=== PATIENT | female | born 1990 | race Caucasian/White ===

== ENCOUNTER 2018-03-21 02:16 | Inpatient (IN) ==
[2018-03-21] MEDS ORDERED: Gentamicin/NS 80 mg Premix 100 ML IV.SIG ONE (02:21)
[2018-03-21] MEDS ORDERED: Diphtheria/Tetanus/Pertussis Vaccine Inj 0.5 ML Syringe IM ONE (02:21)
[2018-03-21] MEDS ORDERED: fentaNYL Citrate Inj 100 MCG/2 ML Ampul ONE ×2 (02:21→08:11)
[2018-03-21 02:39] LABS: Baso # (Auto) 0.1 th/mm3 (0.0-0.2); Baso % (Auto) 0.5 % (0.0-2.0); Eos # (Auto) 0.1 th/mm3 (0.0-0.4); Eos % (Auto) 0.8 % (0.0-4.0); Hematocrit 33.2 % (35.0-46.0); Hemoglobin 10.9 gm/dL (11.6-15.3); Lymph # (Auto) 4.3 th/mm3 (1.0-4.8); Lymph % (Auto) 25.8 % (9.0-44.0); Mean Corpuscular HGB Conc 32.8 % (32.0-36.0); Mean Corpuscular Hemoglobin 23.5 pg (27.0-34.0); Mean Corpuscular Volume 71.7 fL (80.0-100.0); Mean Platelet Volume 7.3 fL (7.0-11.0); Mono # (Auto) 0.8 th/mm3 (0.0-0.9); Mono % (Auto) 4.7 % (0.0-8.0); Neut # (Auto) 11.3 th/mm3 (1.8-7.7); Neut % (Auto) 68.2 % (16.0-70.0); Platelet Count 379 th/mm3 (150-450); Red Blood Count 4.63 mil/mm3 (4.00-5.30); Red Cell Distribution Width 15.6 % (11.6-17.2); White Blood Count 16.6 th/mm3 (4.0-11.0)
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
[2018-03-21 03:07] LABS: Activated Partial Thrombo Time 27.3 sec (24.3-30.1); INR 1.1 Ratio; Prothrombin Time 11.3 sec (9.8-11.6)
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
[2018-03-21] MEDS ORDERED: HYDROmorphone PF Inj 2 MG/ML Vial IV.PUSH PRN (03:42)
[2018-03-21] MEDS ORDERED: Chlorhexidine Gluconate 2% 1 Pack (2 Cloths) TOPICAL PRN (04:00)
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
[2018-03-21] MEDS: Pantoprazole Inj 40 MG Vial IV.PUSH SCH (05:35)
[2018-03-21] MEDS: Chlorhexidine Gluconate 2% 1 Pack (2 Cloths) TOPICAL SCH (05:35)
[2018-03-21] MEDS: Sod Chloride 0.9% Inj 1,000 ML IV.CONT SCH ×2 (05:35→14:31)
[2018-03-21] MEDS: Multivitamin Inj 10 ML, Thiamine Inj 100 MG, Folic Acid Inj 1 MG in Sodium Chlor 0.9% I... IV.SIG SCH (05:36)
[2018-03-21] MEDS: HYDROmorphone PF Inj 2 MG/ML Vial IV.PUSH PRN (05:36)
[2018-03-21] MEDS ORDERED: Chlorhexidine Gluconate 2% 1 Pack (2 Cloths) TOPICAL ONE (07:15)
[2018-03-21] MEDS ORDERED: Sodium Chlor 0.9% Inj 500 ML IV.CONT ONE (07:15)
[2018-03-21] MEDS ORDERED: Succinylcholine Inj 100 MG/5 ML Syringe IV.PUSH ONE (08:14)
[2018-03-21] MEDS ORDERED: Ketorolac Inj 30 MG/ML (IVP) Vial IV.PUSH ONE (08:14)
[2018-03-21] MEDS ORDERED: Lidocaine PF 1% Inj 5 ML Syringe OTHER ONE (08:14)
--- NOTE | 2018-03-21 09:52 | P.BOP ---
- Preoperative Diagnosis (1) Laceration of right knee with tendon involvement Date of procedure: 03/21/18 Procedure: right knee irrigation and debridement application of wound vac dressing 10x5cm Anesthesia: GETA Surgeon: Oneida Saenz MD Estimated blood loss (mL): 50 Tourniquet time (min): 44 Pathology: none sent Condition: stable Disposition: PACU
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
[2018-03-21] MEDS ORDERED: Morphine Inj 4 MG/ML Vial ONE (11:08)
[2018-03-21] MEDS: Docusate Sodium 100 MG Capsule PO SCH ×2 (12:02→20:03)
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
[2018-03-21] MEDS ORDERED: ceFAZolin 2 GM Premix Inj 2 GM/50 ML PIGGYBACK IV.SIG SCH (13:00)
[2018-03-21] MEDS: ceFAZolin 2 GM Premix Inj 2 GM/100 ML BAG IV.SIG SCH ×2 (14:31→21:40)
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
[2018-03-21] MEDS ORDERED: Sodium Chloride 0.9% 2 ML Flush PRN IV.FLUSH (23:17)
[2018-03-22] MEDS: Sod Chloride 0.9% Inj 1,000 ML IV.CONT SCH (02:00)
[2018-03-22] MEDS: Chlorhexidine Gluconate 2% 1 Pack (2 Cloths) TOPICAL SCH (03:59)
[2018-03-22] MEDS: Pantoprazole Inj 40 MG Vial IV.PUSH SCH (04:03)
[2018-03-22] MEDS: Multivitamin Inj 10 ML, Thiamine Inj 100 MG, Folic Acid Inj 1 MG in Sodium Chlor 0.9% I... IV.SIG SCH (04:03)
[2018-03-22 04:35] LABS: Baso % (Auto) 0.2 % (0.0-2.0); Hematocrit 31.6 % (35.0-46.0); Hemoglobin 10.3 gm/dL (11.6-15.3); Lymph # (Auto) 1.6 th/mm3 (1.0-4.8); Lymph % (Auto) 10.1 % (9.0-44.0); Mean Corpuscular HGB Conc 32.7 % (32.0-36.0); Mean Corpuscular Hemoglobin 23.5 pg (27.0-34.0); Mean Corpuscular Volume 71.8 fL (80.0-100.0); Mean Platelet Volume 7.4 fL (7.0-11.0); Mono # (Auto) 0.8 th/mm3 (0.0-0.9); Mono % (Auto) 5.2 % (0.0-8.0); Neut # (Auto) 13.2 th/mm3 (1.8-7.7); Neut % (Auto) 84.5 % (16.0-70.0); Platelet Count 317 th/mm3 (150-450); Red Blood Count 4.41 mil/mm3 (4.00-5.30); Red Cell Distribution Width 16.1 % (11.6-17.2); White Blood Count 15.6 th/mm3 (4.0-11.0)
[2018-03-22 04:55] LABS: Anion Gap 7 meq/L (5-15); Blood Urea Nitrogen 4 mg/dL (7-18); Calcium 7.6 mg/dL (8.5-10.1); Carbon Dioxide 25.9 meq/L (21.0-32.0); Chloride 108 meq/L (98-107); Glomerular Filtration Rate Greater Than 89 mL/min (>89); Glucose,Random 116 mg/dL (74-106); Potassium 3.6 meq/L (3.5-5.1); Sodium 141 meq/L (136-145)
[2018-03-22] MEDS: ceFAZolin 2 GM Premix Inj 2 GM/100 ML BAG IV.SIG SCH ×3 (07:39→22:32)
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
[2018-03-22] MEDS: Enoxaparin Inj 40 MG/0.4 ML Syringe SQ SCH (09:21)
[2018-03-22] MEDS: Docusate Sodium 100 MG Capsule PO SCH ×2 (09:21→22:33)
[2018-03-22] MEDS: Sodium Chloride 0.9% 2 ML Flush BID IV.FLUSH SCH ×2 (09:21→23:08)
[2018-03-22] MEDS: HYDROmorphone PF Inj 2 MG/ML Vial IV.PUSH PRN (09:35)
[2018-03-22] MEDS ORDERED: Morphine Sulfate Inj 2 MG/ML Vial IV.PUSH PRN (09:43)
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
--- NOTE | 2018-03-22 11:41 | P.DCO ---
- Physical Therapy Order: Evaluate and treat, Improve ambulation, Strength and gait training - Home Health Nursing Order: Medical education, Signs/symptoms of disease process, Medication education-adverse effect, Nursing assessment with vital signs - Case Management Consult Yes - Certification I have seen patient Emi Marcum on 03/22/18. My clinical findings support the need for the requested home health care services because: Limited mobility due to disease progression, Deconditioned with increased weakness, Limited ability to care for self, High risk of falls I certify that my clinical findings support that this patient is homebound because: Post-op weakness, Unsteady gait/balance, Unsafe to leave home unassisted, Unable to use public transportation
[2018-03-22] MEDS: Gabapentin 300 MG Capsule PO SCH ×2 (12:46→17:16)
--- NOTE | 2018-03-22 13:18 | P.PNOP ---
Subjective Interval history: Emi resting comfortable in a chair. She notes her pain is well- controlled. She endorses sensation intact to the right upper extremity. Physical Exam Vital signs: Vital Signs 03/21/18 13:36 03/21/18 15:49 03/21/18 20:00 Temperature 97.7 F 97.7 F Pulse Rate 91 H 93 H Respiratory Rate 18 18 Blood Pressure 126/80 118/77 Pulse Oximetry 96 95 97 03/22/18 00:00 03/22/18 00:06 03/22/18 04:00 Temperature 97.9 F 97.9 F Pulse Rate 97 H 101 H 104 H Respiratory Rate 17 17 Blood Pressure 125/83 116/68 Pulse Oximetry 99 95 03/22/18 08:00 03/22/18 09:00 03/22/18 11:03 Temperature 98.2 F Pulse Rate 100 H 98 H Respiratory Rate 20 16 Blood Pressure 120/74 Pulse Oximetry 96 03/22/18 12:00 Temperature 98.3 F Pulse Rate 96 H Respiratory Rate 20 Blood Pressure 116/63 Pulse Oximetry 96 Intake & Output 03/21/18 03/22/18 03/22/18 18:59 06:59 18:59 Intake Total 3611.2 / 3611.2 1939 / 0 2200 / 2200 Output Total 45 / 45 Balance 3566.2 / 3566.2 1939 / 1939 2200 / 2200 Weight 104.6 kg Intake: IV 1611.2 / 1611.2 1100 / 1100 2200 / 2200 LR 1000 mL Inj 1,000 ML @ 30 500 / 500 mls/hr IV.CONT .Q24H [facility] Rx#: [id number] NS Inj 1,000 ML @ 100 mls/hr IV 1000 / 1000 1000 / 1000 1000 / 1000 .CONT .Q10H [facility] Rx#:[id number] NS Inj 500 ML @ 30 mls/hr IV. 500 / 500 CONT .[id number] [facility] Rx#:[id number] Ofirmev Inj 1,000 mg In 100 ml 100 / 100 @ 400 mls/hr IV.SIG Q6H [facility] Rx# :[id number] MVI-12 Inj 10 ML Thiamine Inj 511.2 / 511.2 100 MG Folvite Inj 1 MG In NS Inj 500 ML @ 125 mls/hr IV.SIG Q24H [facility] Rx#:[id number] Ancef 2 GM Premix Inj 2 gm In 100 / 100 100 / 100 100 / 100 100 ml @ 150 mls/hr IV.SIG Q8H [facility] Rx#:[id number] Oral 500 / 500 840 / 840 Anesthesia Amount 1500 / 1500 Output: Estimated Blood Loss Wound Vac Amount Right Leg Other: Mode Setting Right Leg Continuous # Voids 4 4 Date of Last Bowel Movement 03/20/18 03/20/18 # Emeses 2 - Constitutional no acute distress - Routine Extremities Exam Comments: Focused evaluation of the right upper extremity demonstrates short arm splint intact. Fingers exposed with mild edema. Sensation is intact in the median, radial, ulnar disruption. Has positive EPL/FPL/FDP P/FDS/EDC/finger abduction/ adduction. There is brisk cap refill less than 2 seconds. Results - Labs CBC & Chem 7: 03/22/18 04:14 03/22/18 04:14 Laboratory Results - last 24 hr 03/22/18 03/22/18 04:14 04:14 WBC 15.6 H RBC 4.41 Hgb 10.3 L Hct 31.6 L MCV 71.8 L MCH 23.5 L MCHC 32.7 RDW 16.1 Plt Count 317 MPV 7.4 Neut % (Auto) 84.5 H Lymph % (Auto) 10.1 [place] % (Auto) 5.2 Eos % (Auto) 0.0 Baso % (Auto) 0.2 Neut # (Auto) 13.2 H Lymph # (Auto) 1.6 [place] # (Auto) 0.8 Eos # (Auto) 0.0 Baso # (Auto) 0.0 WBC Differential . Differential Comment Auto diff final Sodium 141 Potassium 3.6 Chloride 108 H Carbon Dioxide 25.9 Anion Gap 7 BUN 4 L Creatinine 0.66 Estimated GFR Greater than 89 Random Glucose 116 H Calcium 7.6 L - Imaging Impressions Wrist X-Ray 03/21/18 00:00 CONCLUSION: 1. Distal right radial ORIF, as above. Assessment and Plan - Assessment and Plan DIAGNOSES: 1. Right distal radius fracture, displaced, intra-articular. 2. Right anterior knee laceration with open knee joint and patellar tendon injury. OPERATION PERFORMED: 1. Right distal radius open reduction internal fixation of intra-articular fracture, greater than 3 or more fragments. 2. Right brachioradialis tenotomy. 3. Right knee irrigation and debridement performed by my partner, Dr. Saenz. 1. Strict nonweightbearing to the right upper extremity. 2. Maintain upper extremity elevation for edema control. 3. Multimodal pain control. 4. Plan for outpatient follow up with Dr. Lim in 2 weeks for wound evaluation and suture removal. Plan for follow up with hand therapy in 1-2 weeks for fabrication of a custom-made static wrist splint and to begin gentle active wrist range of motion. This plan of care was communicated to patient and mother at bedside. We reemphasized the importance of compliance with therapy. 5. From an upper extremity standpoint, the patient is cleared for discharge. The patient, however, will be taken back to the operating room with Dr. Saenz for right knee patellar tendon repair in a staged fashion. Deferred to Dr. Saenz for further surgical planning.
[2018-03-22] MEDS: Ketorolac Inj 30 MG/ML (IVP) Vial IV.PUSH SCH ×2 (16:42→22:34)
--- NOTE | 2018-03-22 21:01 | P.PNOP ---
Subjective Interval history: No overnight events. Pain controlled with medications. Physical Exam Vital signs: Vital Signs 03/22/18 00:00 03/22/18 00:06 03/22/18 04:00 Temperature 97.9 F 97.9 F Pulse Rate 97 H 101 H 104 H Respiratory Rate 17 17 Blood Pressure 125/83 116/68 Pulse Oximetry 99 95 03/22/18 08:00 03/22/18 09:00 03/22/18 11:03 Temperature 98.2 F Pulse Rate 100 H 98 H Respiratory Rate 20 16 Blood Pressure 120/74 Pulse Oximetry 96 03/22/18 12:00 03/22/18 14:08 03/22/18 16:00 Temperature 98.3 F 98.7 F Pulse Rate 96 H 99 H Respiratory Rate 20 16 20 Blood Pressure 116/63 124/81 Pulse Oximetry 96 100 03/22/18 17:15 03/22/18 20:00 Temperature 98.0 F Pulse Rate 96 H Respiratory Rate 16 18 Blood Pressure 131/82 Pulse Oximetry 99 Intake & Output 03/22/18 03/22/18 03/23/18 06:59 18:59 06:59 Intake Total 1940 / 1940 4091.2 / 4091.2 Output Total 800 / 800 Balance 194 / 1940 3291.2 / 3291.2 Weight 104.6 kg Intake: IV 1100 / 1100 2911.2 / 2911.2 LR 1000 mL Inj 1,000 ML @ 30 500 / 500 mls/hr IV.CONT .Q24H [facility] Rx#: [id number] NS Inj 1,000 ML @ 100 mls/hr IV 1000 / 1000 1000 / 1000 .CONT .Q10H [facility] Rx#:[id number] NS Inj 500 ML @ 30 mls/hr IV. 500 / 500 CONT .[id number] [facility] Rx#:[id number] Ofirmev Inj 1,000 mg In 100 ml 200 / 200 @ 400 mls/hr IV.SIG Q6H [facility] Rx# :[id number] MVI-12 Inj 10 ML Thiamine Inj 511.2 / 511.2 100 MG Folvite Inj 1 MG In NS Inj 500 ML @ 125 mls/hr IV.SIG Q24H [facility] Rx#:[id number] Ancef 2 GM Premix Inj 2 gm In 100 / 100 200 / 200 100 ml @ 150 mls/hr IV.SIG Q8H [facility] Rx#:[id number] Oral 840 / 840 1180 / 1180 Output: Urine 800 / 800 Other: # Voids 4 3 Date of Last Bowel Movement 03/20/18 03/22/18 # Bowel Movements 1 Narrative: Right lower extremity surgical dressing intact. The VAC is in place with good seal and small amount of serosanguinous drainage in canister. She is able to wiggle all her toes and has intact sensation distally. 2+ DP. Results - Labs CBC & Chem 7: 03/22/18 04:14 03/22/18 04:14 Laboratory Results - last 24 hr 03/22/18 03/22/18 04:14 04:14 WBC 15.6 H RBC 4.41 Hgb 10.3 L Hct 31.6 L MCV 71.8 L MCH 23.5 L MCHC 32.7 RDW 16.1 Plt Count 317 MPV 7.4 Neut % (Auto) 84.5 H Lymph % (Auto) 10.1 [place] % (Auto) 5.2 Eos % (Auto) 0.0 Baso % (Auto) 0.2 Neut # (Auto) 13.2 H Lymph # (Auto) 1.6 [place] # (Auto) 0.8 Eos # (Auto) 0.0 Baso # (Auto) 0.0 WBC Differential . Differential Comment Auto diff final Sodium 141 Potassium 3.6 Chloride 108 H Carbon Dioxide 25.9 Anion Gap 7 BUN 4 L Creatinine 0.66 Estimated GFR Greater than 89 Random Glucose 116 H Calcium 7.6 L Assessment and Plan - Ortho Post Op Day # 1 - Assessment and Plan 28 year old female POD 1 s/p right knee I&D with VAC placement and I&D/ORIF R distal radius fracture Plan: discussed plan for repeat I&D with patellar tendon repair, possible hamstring autograft augmentation and possible VAC with patient and her mother at bedside this morning. Risks, benefits and alternatives discussed and she would like to proceed with surgery. Will plan for this tomorrow afternoon. All questions answered. NPO after midnight.
[2018-03-23] MEDS ORDERED: Chlorhexidine Gluconate 2% 1 Pack (2 Cloths) TOPICAL ONE (04:08)
[2018-03-23] MEDS: Ketorolac Inj 30 MG/ML (IVP) Vial IV.PUSH SCH ×4 (04:24→21:43)
[2018-03-23] MEDS: Pantoprazole Inj 40 MG Vial IV.PUSH SCH (04:24)
[2018-03-23] MEDS ORDERED: Sodium Chlor 0.9% Inj 500 ML IV.SIG SCH (05:00)
[2018-03-23] MEDS: ceFAZolin 2 GM Premix Inj 2 GM/100 ML BAG IV.SIG SCH ×3 (05:14→21:43)
[2018-03-23] MEDS: Multivitamin Inj 10 ML, Thiamine Inj 100 MG, Folic Acid Inj 1 MG in Sodium Chlor 0.9% I... IV.SIG SCH (06:02)
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
[2018-03-23] MEDS: Gabapentin 300 MG Capsule PO SCH ×3 (08:18→18:18)
[2018-03-23] MEDS: Docusate Sodium 100 MG Capsule PO SCH ×2 (08:19→20:54)
[2018-03-23] MEDS: Enoxaparin Inj 40 MG/0.4 ML Syringe SQ SCH (08:19)
[2018-03-23] MEDS: Sodium Chloride 0.9% 2 ML Flush BID IV.FLUSH SCH ×2 (08:20→20:55)
--- NOTE | 2018-03-23 16:58 | P.BOP ---
Date of procedure: 03/23/18 Procedure: repeat irrigation and debridement right knee, vacuum assisted closure Anesthesia: GETA Surgeon: Oneida Saenz MD Seal Extrusion Operator: Haja Franco Estimated blood loss (mL): 25 Pathology: none sent Condition: stable Disposition: PACU
[2018-03-23] MEDS ORDERED: fentaNYL Citrate Inj 100 MCG/2 ML Ampul ONE (17:13)
[2018-03-24] MEDS: Ketorolac Inj 30 MG/ML (IVP) Vial IV.PUSH SCH ×4 (03:41→21:22)
[2018-03-24] MEDS: Pantoprazole Inj 40 MG Vial IV.PUSH SCH (03:41)
[2018-03-24 05:06] LABS: Baso % (Auto) 0.1 % (0.0-2.0); Hematocrit 29.8 % (35.0-46.0); Hemoglobin 9.7 gm/dL (11.6-15.3); Mean Corpuscular HGB Conc 32.4 % (32.0-36.0); Mean Corpuscular Hemoglobin 23.4 pg (27.0-34.0); Mean Corpuscular Volume 72.1 fL (80.0-100.0); Mean Platelet Volume 7.3 fL (7.0-11.0); Mono # (Auto) 0.2 th/mm3 (0.0-0.9); Mono % (Auto) 1.6 % (0.0-8.0); Neut # (Auto) 11.5 th/mm3 (1.8-7.7); Neut % (Auto) 90.3 % (16.0-70.0); Platelet Count 370 th/mm3 (150-450); Red Blood Count 4.13 mil/mm3 (4.00-5.30); Red Cell Distribution Width 15.8 % (11.6-17.2); White Blood Count 12.7 th/mm3 (4.0-11.0)
[2018-03-24 05:52] LABS: Anion Gap 7 meq/L (5-15); Blood Urea Nitrogen 8 mg/dL (7-18); Calcium 7.8 mg/dL (8.5-10.1); Chloride 106 meq/L (98-107); Glomerular Filtration Rate Greater Than 89 mL/min (>89); Glucose,Random 117 mg/dL (74-106); Potassium 4.5 meq/L (3.5-5.1); Sodium 140 meq/L (136-145)
[2018-03-24] MEDS: ceFAZolin 2 GM Premix Inj 2 GM/100 ML BAG IV.SIG SCH ×3 (05:52→21:28)
[2018-03-24] MEDS: Docusate Sodium 100 MG Capsule PO SCH ×2 (11:02→21:28)
[2018-03-24] MEDS: Gabapentin 300 MG Capsule PO SCH ×3 (11:02→17:37)
[2018-03-24] MEDS: Enoxaparin Inj 40 MG/0.4 ML Syringe SQ SCH (11:02)
[2018-03-24] MEDS: Sodium Chloride 0.9% 2 ML Flush BID IV.FLUSH SCH ×2 (11:03→21:18)
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
--- NOTE | 2018-03-24 19:38 | P.PNOP ---
Subjective Interval history: Doing well, pain controlled with medications. Physical Exam Vital signs: Vital Signs 03/23/18 19:43 03/23/18 20:00 03/24/18 00:00 Temperature 98.1 F Pulse Rate 87 85 84 Respiratory Rate 18 Blood Pressure 136/87 Pulse Oximetry 92 L 03/24/18 00:05 03/24/18 03:52 03/24/18 04:00 Temperature 98.0 F 97.9 F Pulse Rate 97 H 78 75 Respiratory Rate 18 18 Blood Pressure 125/76 120/77 Pulse Oximetry 94 L 96 03/24/18 08:00 03/24/18 12:00 03/24/18 15:45 Temperature 97.7 F 97.8 F 97.6 F Pulse Rate 76 93 H 87 Respiratory Rate 18 18 18 Blood Pressure 108/73 124/66 127/75 Pulse Oximetry 96 97 97 Intake & Output 03/24/18 03/24/18 03/25/18 06:59 18:59 06:59 Intake Total 580 / 580 1280 / 1280 Output Total 300 / 300 200 / 200 Balance 280 / 280 1080 / 1080 Weight 104.6 kg Intake: IV 100 / 100 200 / 200 Ancef 2 GM Premix Inj 2 gm In 100 / 100 200 / 200 100 ml @ 150 mls/hr IV.SIG Q8H ISAI Rx#:[id number] Oral 480 / 480 1080 / 1080 Output: Wound Drainage 200 / 200 Right Knee 200 / 200 Wound Vac Amount 300 / 300 Right Leg 300 / 300 Other: Mode Setting Right Leg Continuous # Voids 4 4 Date of Last Bowel Movement 03/23/18 03/24/18 # Bowel Movements 4 0 Narrative: Right lower extremity with knee immobilizer and VAC in place. 2+DP. Motor and sensory intact distally. Right upper extremity in splint. Results - Labs CBC & Chem 7: 03/24/18 04:29 03/24/18 04:29 Laboratory Results - last 24 hr 03/24/18 03/24/18 04:29 04:29 WBC 12.7 H RBC 4.13 Hgb 9.7 L Hct 29.8 L MCV 72.1 L MCH 23.4 L MCHC 32.4 RDW 15.8 Plt Count 370 MPV 7.3 Neut % (Auto) 90.3 H Lymph % (Auto) 8.0 L [place] % (Auto) 1.6 Eos % (Auto) 0.0 Baso % (Auto) 0.1 Neut # (Auto) 11.5 H Lymph # (Auto) 1.0 [place] # (Auto) 0.2 Eos # (Auto) 0.0 Baso # (Auto) 0.0 WBC Differential . Differential Comment Auto diff final Sodium 140 Potassium 4.5 Chloride 106 Carbon Dioxide 27.0 Anion Gap 7 BUN 8 Creatinine 0.57 Estimated GFR Greater than 89 Random Glucose 117 H Calcium 7.8 L Assessment and Plan - Ortho Post Op Day # 1 - Assessment and Plan 28 year old female POD 1 s/p repeat right knee I&D with VAC placement, POD 3 s/ p right knee I&D and I&D/ORIF R distal radius fracture Plan: Discussed plan for right knee repeat I&D with patellar tendon repair, possible hamstring autograft augmentation and VAC with patient and her mother. Risks, benefits and alternatives discussed and she would like to proceed with surgery. Will plan for this tomorrow afternoon. All questions answered. NPO after midnight. I have also discussed that she will need some type of flap coverage for the anterior knee wound. A consult has been placed to Dr. Rodriguez for evaluation.
[2018-03-25] MEDS: Pantoprazole Inj 40 MG Vial IV.PUSH SCH (04:12)
[2018-03-25] MEDS: ceFAZolin 2 GM Premix Inj 2 GM/100 ML BAG IV.SIG SCH ×3 (05:18→22:55)
[2018-03-25] MEDS: Docusate Sodium 100 MG Capsule PO SCH ×2 (10:10→22:56)
[2018-03-25] MEDS: Gabapentin 300 MG Capsule PO SCH ×3 (10:11→17:32)
[2018-03-25] MEDS: Enoxaparin Inj 40 MG/0.4 ML Syringe SQ SCH (11:10)
[2018-03-25] MEDS: Sodium Chloride 0.9% 2 ML Flush BID IV.FLUSH SCH ×2 (11:11→22:56)
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
[2018-03-25] MEDS ORDERED: Lidocaine PF 1% Inj 5 ML Syringe OTHER ONE (13:15)
--- NOTE | 2018-03-25 15:14 | P.BOP ---
- Preoperative Diagnosis (1) Laceration of right knee with tendon involvement - Postoperative Diagnosis (1) Laceration of right knee with tendon involvement Date of procedure: 03/25/18 Procedure: Right knee repeat irrigation and debridement, patellar tendon repair, partial wound closure with vacuum assisted closure Anesthesia: FRED Surgeon: Oneida Saenz MD Estimated blood loss (mL): 20 Tourniquet time (min): 73 Pathology: none sent Condition: stable Disposition: PACU
[2018-03-25] MEDS ORDERED: Morphine Inj 4 MG/ML Vial ONE (15:21)
[2018-03-25] MEDS ORDERED: *morphine SULFATE 4 MG/ML PERIprocedure ONLY ONE ×3 (15:21→15:33)
[2018-03-25] MEDS ORDERED: fentaNYL Citrate Inj 100 MCG/2 ML Ampul ONE (15:22)
[2018-03-25] MEDS ORDERED: HYDROmorphone PF Inj 2 MG/ML Vial ONE ×2 (15:44→15:57)
[2018-03-25] MEDS ORDERED: ceFAZolin 2 GM Premix Inj 2 GM/50 ML PIGGYBACK IV.SIG SCH (17:00)
[2018-03-25] MEDS: Sod Chloride 0.9% Inj 1,000 ML IV.CONT SCH (23:47)
[2018-03-26] MEDS: ceFAZolin 2 GM Premix Inj 2 GM/100 ML BAG IV.SIG SCH ×2 (04:05→13:34)
[2018-03-26] MEDS: Pantoprazole Inj 40 MG Vial IV.PUSH SCH (04:05)
[2018-03-26 04:15] LABS: Baso % (Auto) 0.3 % (0.0-2.0); Hematocrit 29.9 % (35.0-46.0); Hemoglobin 9.6 gm/dL (11.6-15.3); Lymph # (Auto) 1.4 th/mm3 (1.0-4.8); Lymph % (Auto) 9.7 % (9.0-44.0); Mean Corpuscular HGB Conc 32.3 % (32.0-36.0); Mean Corpuscular Hemoglobin 23.2 pg (27.0-34.0); Mean Corpuscular Volume 71.9 fL (80.0-100.0); Mean Platelet Volume 7.2 fL (7.0-11.0); Mono # (Auto) 0.5 th/mm3 (0.0-0.9); Mono % (Auto) 3.8 % (0.0-8.0); Neut # (Auto) 12.2 th/mm3 (1.8-7.7); Neut % (Auto) 86.2 % (16.0-70.0); Platelet Count 413 th/mm3 (150-450); Red Blood Count 4.16 mil/mm3 (4.00-5.30); Red Cell Distribution Width 15.5 % (11.6-17.2); White Blood Count 14.2 th/mm3 (4.0-11.0)
[2018-03-26 04:37] LABS: Anion Gap 7 meq/L (5-15); Blood Urea Nitrogen 12 mg/dL (7-18); Calcium 8.1 mg/dL (8.5-10.1); Carbon Dioxide 29.3 meq/L (21.0-32.0); Chloride 104 meq/L (98-107); Glomerular Filtration Rate Greater Than 89 mL/min (>89); Glucose,Random 116 mg/dL (74-106); Potassium 4.4 meq/L (3.5-5.1); Sodium 140 meq/L (136-145)
[2018-03-26] MEDS: Gabapentin 300 MG Capsule PO SCH ×3 (09:11→18:22)
[2018-03-26] MEDS: Docusate Sodium 100 MG Capsule PO SCH ×2 (09:11→21:10)
[2018-03-26] MEDS: Enoxaparin Inj 40 MG/0.4 ML Syringe SQ SCH (09:11)
[2018-03-26] MEDS: Sodium Chloride 0.9% 2 ML Flush BID IV.FLUSH SCH ×2 (09:12→21:10)
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
--- NOTE | 2018-03-26 20:15 | P.PNOP ---
Subjective Interval history: No new issues. Knee pain a little better today. Physical Exam Vital signs: Vital Signs 03/25/18 20:23 03/26/18 00:05 03/26/18 03:40 Temperature 96.7 F L 98.2 F 98.0 F Pulse Rate 88 88 74 Respiratory Rate 20 18 17 Blood Pressure 125/78 117/71 121/63 Pulse Oximetry 95 96 97 03/26/18 08:00 03/26/18 12:00 03/26/18 16:00 Temperature 98.3 F 97.9 F 98.0 F Pulse Rate 73 78 94 H Respiratory Rate 16 16 16 Blood Pressure 150/93 H 132/81 129/77 Pulse Oximetry 95 96 97 Intake & Output 03/26/18 03/26/18 03/27/18 06:59 18:59 06:59 Intake Total 1680 / 1680 100 / 100 Output Total 0 / 0 Balance 1680 / 1680 100 / 100 Weight 104.5 kg Intake: IV 1200 / 1200 100 / 100 Ancef 2 GM Premix Inj 2 gm In 200 / 200 100 / 100 100 ml @ 200 mls/hr IV.SIG Q8H ISAI Rx#:[id number] Oral 480 / 480 Output: Wound Vac Amount 0 / 0 Right Leg 0 / 0 Other: # Voids 4 2 Date of Last Bowel Movement 03/24/18 03/25/18 Narrative: right knee wound vac in place with good seal. 2+DP. +EHL/FHL/PF/DF. SILT Results - Labs CBC & Chem 7: 03/26/18 03:46 03/26/18 03:46 Laboratory Results - last 24 hr 03/26/18 03/26/18 03:46 03:46 WBC 14.2 H RBC 4.16 Hgb 9.6 L Hct 29.9 L MCV 71.9 L MCH 23.2 L MCHC 32.3 RDW 15.5 Plt Count 413 MPV 7.2 Neut % (Auto) 86.2 H Lymph % (Auto) 9.7 [place] % (Auto) 3.8 Eos % (Auto) 0.0 Baso % (Auto) 0.3 Neut # (Auto) 12.2 H Lymph # (Auto) 1.4 [place] # (Auto) 0.5 Eos # (Auto) 0.0 Baso # (Auto) 0.0 WBC Differential . Differential Comment Auto diff final Sodium 140 Potassium 4.4 Chloride 104 Carbon Dioxide 29.3 Anion Gap 7 BUN 12 Creatinine 0.61 Estimated GFR Greater than 89 Random Glucose 116 H Calcium 8.1 L Assessment and Plan - Assessment and Plan 28 year old female POD 1 s/p right knee repeat I&D with patellar tendon repair, POD 3repeat right knee I&D with VAC placement, POD 5 s/p right knee I&D and I&D/ ORIF R distal radius fracture Plan: WBAT RLE in knee immobilizer, NWB RUE in splint Will need flap coverage for knee, case management consulted and will plan to transfer to [place] for this procedure. No further orthopedic interventions planned at this time.
[2018-03-27] MEDS: Pantoprazole Inj 40 MG Vial IV.PUSH SCH ×2 (08:15→08:53)
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
[2018-03-27] MEDS: Docusate Sodium 100 MG Capsule PO SCH ×2 (08:51→21:19)
[2018-03-27] MEDS: Gabapentin 300 MG Capsule PO SCH ×3 (08:51→18:04)
[2018-03-27] MEDS: Enoxaparin Inj 40 MG/0.4 ML Syringe SQ SCH (08:52)
[2018-03-27] MEDS: Sodium Chloride 0.9% 2 ML Flush BID IV.FLUSH SCH ×2 (08:53→21:19)
--- NOTE | 2018-03-27 10:10 | P.PNOP ---
Subjective Interval history: Patient is awake and alert. She admits her pain is well controlled. Patient and both nurse state that she has been transferred to [facility] most likely on Thursday for flap graft by plastics. Physical Exam Vital signs: Vital Signs 03/26/18 12:00 03/26/18 16:00 03/26/18 19:55 Temperature 97.9 F 98.0 F 98.3 F Pulse Rate 78 94 H 93 H Respiratory Rate 16 16 15 Blood Pressure 132/81 129/77 140/72 Pulse Oximetry 96 97 97 03/26/18 23:25 03/27/18 03:45 03/27/18 08:00 Temperature 98.3 F 98.1 F 98.1 F Pulse Rate 82 86 90 Respiratory Rate 16 16 16 Blood Pressure 145/86 H 119/75 142/93 H Pulse Oximetry 97 96 95 Intake & Output 03/26/18 03/27/18 03/27/18 18:59 06:59 18:59 Intake Total 100 / 100 1000 / 1000 Output Total 50 / 50 Balance 100 / 100 950 / 950 Weight 104.6 kg Intake: IV 100 / 100 Ancef 2 GM Premix Inj 2 gm In 100 / 100 100 ml @ 200 mls/hr IV.SIG Q8H ISAI Rx#:[id number] Oral 1000 / 1000 Output: Wound Drainage 50 / 50 Right Knee 50 / 50 Other: # Voids 2 4 Date of Last Bowel Movement 03/25/18 Narrative: MUSCULOSKELETAL: Extremities without cyanosis, or edema. Right upper extremity splint in place and wrapped in Peterson bandage elevated. Right lower extremity with wound VAC in place with good seal, covered with Peterson bandage. CKS in place to RLE. + peripheral pulses x 4 extremities. Warm with good capillary refill and sensation. Results - Labs CBC & Chem 7: 03/26/18 03:46 03/26/18 03:46 - Procedures 03/25/18 s/p right knee repeat I&D with patellar tendon repair (Dr Oneida Saenz ) 03/23/18 repeat right knee I&D with VAC placement (Dr Oneida Saenz) 03/21/18 s/p right knee I&D and I&D (Dr Oneida Saenz) 03/22/18 Right distal radius open reduction internal fixation of intra- articular fracture, greater than 3 or more fragments. (Dr Latrell Lim) 03/22/18 Right brachioradialis tenotomy. (Dr Latrell Lim) Assessment and Plan - Assessment and Plan Procedures Performed: POD #2 s/p right knee repeat I&D with patellar tendon repair (Dr Oneida Saenz) POD #4 repeat right knee I&D with VAC placement (Dr Oneida Saenz) POD #6 s/p right knee I&D and I&D (Dr Oneida Saenz) POD #5 Right distal radius open reduction internal fixation of intra- articular fracture, greater than 3 or more fragments. (Dr Latrell Lim) POD #5 Right brachioradialis tenotomy. (Dr Latrell Lim) Plan: Right Lower Extremity: WBAT RLE in knee immobilizer, NWB RUE in splint Will need flap coverage for knee, case management consulted and will plan to transfer to [place] for this procedure - most likely Thursday. Clear for d/c from orthopedic standpoint Right Upper Extremity: 1. Strict nonweightbearing to the right upper extremity. 2. Maintain upper extremity elevation for edema control. 3. Multimodal pain control. 4. Plan for outpatient follow up with Dr. Lim in 2 weeks for wound evaluation and suture removal. Plan for follow up with hand therapy in 1-2 weeks for fabrication of a custom-made static wrist splint and to begin gentle active wrist range of motion. This plan of care was communicated to patient and mother at bedside. We reemphasized the importance of compliance with therapy.
--- NOTE | 2018-03-28 08:27 | P.PNOP ---
Subjective Interval history: Awake and alert. Pain controlled. She states that she has questions regarding if she needs to keep her arm in the elevation on the IV pole. Patient understands she will be transferred to [facility] tomorrow for right lower extremity skin flap. Patient does make mention that she lives in [place] and would like to continue her postoperative rehab and follow-up care in [place]. Physical Exam Vital signs: Vital Signs 03/27/18 11:48 03/27/18 16:00 03/27/18 20:00 Temperature 97.3 F L 97.6 F 98 F Pulse Rate 111 H 110 H 107 H Respiratory Rate 16 16 20 Blood Pressure 118/76 125/68 125/76 Pulse Oximetry 97 95 95 03/27/18 23:41 03/28/18 00:00 03/28/18 04:00 Temperature 99.4 F 98 F Pulse Rate 115 H 113 H Respiratory Rate 18 20 20 Blood Pressure 125/84 123/72 Pulse Oximetry 95 95 Intake & Output 03/27/18 03/28/18 03/28/18 18:59 06:59 18:59 Intake Total 120 / 120 Balance 120 / 120 Weight 104.6 kg Intake: Oral 120 / 120 Other: # Voids 1 Date of Last Bowel Movement 03/25/18 03/25/18 Narrative: MUSCULOSKELETAL: Extremities without cyanosis, or edema. Right upper extremity splint in place and wrapped in Peterson bandage. Very minimal swelling noted on distal digits. Good cap refill. NVI right lower extremity with wound VAC in place with good seal, covered with Peterson bandage. CKS in place to RLE. Full motion of distal ankle, no calf pain. Neurovascularly intact. + peripheral pulses x 4 extremities. Warm with good capillary refill and sensation. Results - Labs CBC & Chem 7: 03/26/18 03:46 03/26/18 03:46 - Procedures 03/25/18 s/p right knee repeat I&D with patellar tendon repair (Dr Oneida Saenz ) 03/23/18 repeat right knee I&D with VAC placement (Dr Oneida Saenz) 03/21/18 s/p right knee I&D and I&D (Dr Oneida Saenz) 03/22/18 Right distal radius open reduction internal fixation of intra- articular fracture, greater than 3 or more fragments. (Dr Latrell Lim) 10 Right brachioradialis tenotomy. (Dr Latrell Lim) Assessment and Plan - Assessment and Plan Procedures Performed: POD #3 s/p right knee repeat I&D with patellar tendon repair (Dr Oneida Saenz) POD #5 repeat right knee I&D with VAC placement (Dr Oneida Saenz) POD #7 s/p right knee I&D and I&D (Dr Oneida Saenz) POD #6 Right distal radius open reduction internal fixation of intra- articular fracture, greater than 3 or more fragments. (Dr Latrell Lim) POD #6 Right brachioradialis tenotomy. (Dr Latrell Lim) Plan: Right Lower Extremity: 1. WBAT RLE in knee immobilizer, NWB RUE in splint 2. Will need flap coverage for knee, case management consulted and will plan to transfer to [place] for this procedure - for tomorrow. 3. Clear for d/c from orthopedic standpoint 4. Patient is okay to seek orthopedic follow-up care in her home town of [place] [facility]. 5. No need to transfer patient back to [facility] after treatment is finished at [facility]. Patient can resume rehab in [place]. Right Upper Extremity: 1. Strict nonweightbearing to the right upper extremity. Start gentle range of motion of distal digits. 2. Okay to discontinue elevation with IV pole. Ice as needed.. Keep propped up on pillows as needed. 3. Multimodal pain control. 4. Plan for outpatient follow up with an orthopedist in her home town of [facility] in 1 week from today for x-rays and wound care.
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
[2018-03-28] MEDS: Enoxaparin Inj 40 MG/0.4 ML Syringe SQ SCH (09:21)
[2018-03-28] MEDS: Gabapentin 300 MG Capsule PO SCH ×3 (09:21→18:39)
[2018-03-28] MEDS: Docusate Sodium 100 MG Capsule PO SCH ×2 (09:21→20:42)
[2018-03-28] MEDS: Pantoprazole Inj 40 MG Vial IV.PUSH SCH (09:21)
[2018-03-28] MEDS: Sodium Chloride 0.9% 2 ML Flush BID IV.FLUSH SCH ×2 (09:23→20:44)
[2018-03-29 08:54] LABS: Baso # (Auto) 0.1 th/mm3 (0.0-0.2); Baso % (Auto) 0.3 % (0.0-2.0); Eos # (Auto) 0.2 th/mm3 (0.0-0.4); Eos % (Auto) 1.2 % (0.0-4.0); Hematocrit 33.6 % (35.0-46.0); Hemoglobin 10.4 gm/dL (11.6-15.3); Lymph # (Auto) 2.8 th/mm3 (1.0-4.8); Mean Corpuscular HGB Conc 31.1 % (32.0-36.0); Mean Corpuscular Hemoglobin 22.8 pg (27.0-34.0); Mean Corpuscular Volume 73.5 fL (80.0-100.0); Mean Platelet Volume 6.9 fL (7.0-11.0); Neut # (Auto) 13.3 th/mm3 (1.8-7.7); Neut % (Auto) 76.5 % (16.0-70.0); Platelet Count 436 th/mm3 (150-450); Red Blood Count 4.57 mil/mm3 (4.00-5.30); Red Cell Distribution Width 15.9 % (11.6-17.2); White Blood Count 17.4 th/mm3 (4.0-11.0)
[2018-03-29] MEDS: Gabapentin 300 MG Capsule PO SCH (09:05)
[2018-03-29] MEDS: Docusate Sodium 100 MG Capsule PO SCH ×2 (09:05→21:39)
[2018-03-29] MEDS: Enoxaparin Inj 40 MG/0.4 ML Syringe SQ SCH (09:05)
[2018-03-29] MEDS: Sodium Chloride 0.9% 2 ML Flush BID IV.FLUSH SCH ×2 (09:06→21:40)
[2018-03-29] MEDS: Pantoprazole Inj 40 MG Vial IV.PUSH SCH (09:07)
[2018-03-29 10:16] LABS: Anion Gap 10 meq/L (5-15); Blood Urea Nitrogen 12 mg/dL (7-18); Calcium 8.6 mg/dL (8.5-10.1); Carbon Dioxide 25.6 meq/L (21.0-32.0); Chloride 102 meq/L (98-107); Glomerular Filtration Rate Greater Than 89 mL/min (>89); Glucose,Random 96 mg/dL (74-106); Potassium 4.5 meq/L (3.5-5.1); Sodium 138 meq/L (136-145)
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
[2018-03-29] MEDS: Gabapentin 400 MG Capsule PO SCH ×2 (13:15→17:33)
--- NOTE | 2018-03-29 15:07 | US ---
EXAM DATE: 03/29/2018 2:49 PM EDT AGE/SEX: 28 years / Female INDICATIONS: Pain. CLINICAL DATA: This is the patient's initial encounter. Patient reports that signs and symptoms have been present for 1 week and indicates a pain score of 10/10. MEDICAL/SURGICAL HISTORY: . Tonsillectomy. Right patella tendon repair. Wound vac right knee. Right knee I&D. COMPARISON: No prior exams available for comparison. TECHNIQUE: Venous ultrasound of both lower extremities was performed from the inguinal ligament to t he proximal calf. Real-time, color Doppler and spectral tracing, compression and augmentation techni ques were used. FINDINGS: Normal compression of the deep venous system from the inguinal region to the proximal calf . No echogenic clot is seen. Normal response of the venous system to augmentation and respiration. CONCLUSION: 1. Negative for deep venous thrombosis Electronically signed by: Toño Acosta MD 03/29/2018 3:06 PM EDT
[2018-03-30] MEDS: Enoxaparin Inj 40 MG/0.4 ML Syringe SQ SCH (09:08)
[2018-03-30] MEDS: Gabapentin 400 MG Capsule PO SCH ×3 (09:09→17:26)
--- NOTE | 2018-03-30 09:10 | XR ---
EXAM DATE: 03/30/2018 9:08 AM EDT AGE/SEX: 28 years / Female INDICATIONS: Short of breath. CLINICAL DATA: This is the patient's subsequent encounter. Patient reports that signs and symptoms h ave been present for 1 week and indicates a pain score of 0/10. MEDICAL/SURGICAL HISTORY: None. . Tonsillectomy. Right patella tendon repair. Wound vac right knee. Right knee I&D. COMPARISON: . FINDINGS: A single AP view of the chest demonstrates the lungs to be symmetrically aerated without evidence of mass, infiltrate or effusion. The cardiomediastinal contours are unremarkable. Osseous structures a re intact. CONCLUSION: No acute cardiopulmonary disease. Electronically signed by: Raymon Andrew MD 03/30/2018 9:09 AM EDT
[2018-03-30] MEDS: Pantoprazole Inj 40 MG Vial IV.PUSH SCH (09:35)
[2018-03-30] MEDS: Docusate Sodium 100 MG Capsule PO SCH ×2 (09:35→21:34)
[2018-03-30] MEDS: Sodium Chloride 0.9% 2 ML Flush BID IV.FLUSH SCH ×2 (10:33→21:34)
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
[2018-03-30 13:07] LABS: Baso % (Auto) 0.2 % (0.0-2.0); Eos # (Auto) 0.1 th/mm3 (0.0-0.4); Eos % (Auto) 0.7 % (0.0-4.0); Hematocrit 32.3 % (35.0-46.0); Hemoglobin 10.2 gm/dL (11.6-15.3); Lymph # (Auto) 2.9 th/mm3 (1.0-4.8); Lymph % (Auto) 16.4 % (9.0-44.0); Mean Corpuscular HGB Conc 31.5 % (32.0-36.0); Mean Corpuscular Hemoglobin 23.2 pg (27.0-34.0); Mean Corpuscular Volume 73.7 fL (80.0-100.0); Mean Platelet Volume 7.1 fL (7.0-11.0); Mono % (Auto) 5.8 % (0.0-8.0); Neut # (Auto) 13.7 th/mm3 (1.8-7.7); Neut % (Auto) 76.9 % (16.0-70.0); Platelet Count 502 th/mm3 (150-450); Red Blood Count 4.39 mil/mm3 (4.00-5.30); Red Cell Distribution Width 15.8 % (11.6-17.2); White Blood Count 17.8 th/mm3 (4.0-11.0)
[2018-03-30 13:18] LABS: Anion Gap 9 meq/L (5-15); Blood Urea Nitrogen 15 mg/dL (7-18); Calcium 9.1 mg/dL (8.5-10.1); Carbon Dioxide 28.9 meq/L (21.0-32.0); Chloride 98 meq/L (98-107); Glomerular Filtration Rate Greater Than 89 mL/min (>89); Glucose,Random 93 mg/dL (74-106); Potassium 4.4 meq/L (3.5-5.1); Sodium 136 meq/L (136-145)
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
[2018-03-31 04:13] LABS: Baso # (Auto) 0.1 th/mm3 (0.0-0.2); Baso % (Auto) 0.5 % (0.0-2.0); Eos # (Auto) 0.1 th/mm3 (0.0-0.4); Eos % (Auto) 0.8 % (0.0-4.0); Hematocrit 30.2 % (35.0-46.0); Hemoglobin 9.5 gm/dL (11.6-15.3); Lymph # (Auto) 2.6 th/mm3 (1.0-4.8); Lymph % (Auto) 15.5 % (9.0-44.0); Mean Corpuscular HGB Conc 31.4 % (32.0-36.0); Mean Corpuscular Hemoglobin 22.8 pg (27.0-34.0); Mean Corpuscular Volume 72.7 fL (80.0-100.0); Mean Platelet Volume 6.8 fL (7.0-11.0); Mono # (Auto) 0.9 th/mm3 (0.0-0.9); Mono % (Auto) 5.4 % (0.0-8.0); Neut # (Auto) 12.9 th/mm3 (1.8-7.7); Neut % (Auto) 77.8 % (16.0-70.0); Platelet Count 468 th/mm3 (150-450); Red Blood Count 4.16 mil/mm3 (4.00-5.30); Red Cell Distribution Width 15.5 % (11.6-17.2); White Blood Count 16.6 th/mm3 (4.0-11.0)
[2018-03-31 04:29] LABS: Anion Gap 8 meq/L (5-15); Blood Urea Nitrogen 11 mg/dL (7-18); Calcium 8.7 mg/dL (8.5-10.1); Carbon Dioxide 28.8 meq/L (21.0-32.0); Chloride 99 meq/L (98-107); Glomerular Filtration Rate Greater Than 89 mL/min (>89); Glucose,Random 108 mg/dL (74-106); Sodium 136 meq/L (136-145)
[2018-03-31] MEDS: Sodium Chloride 0.9% 2 ML Flush BID IV.FLUSH SCH ×2 (08:44→20:05)
[2018-03-31] MEDS: Docusate Sodium 100 MG Capsule PO SCH ×2 (08:44→20:05)
[2018-03-31] MEDS: Gabapentin 400 MG Capsule PO SCH ×3 (08:44→17:50)
[2018-03-31] MEDS: Enoxaparin Inj 40 MG/0.4 ML Syringe SQ SCH (08:44)
[2018-03-31] MEDS: Pantoprazole Inj 40 MG Vial IV.PUSH SCH (08:45)
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
[2018-04-01] MEDS: Gabapentin 400 MG Capsule PO SCH ×3 (09:28→19:42)
[2018-04-01] MEDS: Docusate Sodium 100 MG Capsule PO SCH ×2 (09:28→21:50)
[2018-04-01] MEDS: Enoxaparin Inj 40 MG/0.4 ML Syringe SQ SCH (09:29)
[2018-04-01] MEDS: Pantoprazole Inj 40 MG Vial IV.PUSH SCH (11:18)
[2018-04-01] MEDS: Sodium Chloride 0.9% 2 ML Flush BID IV.FLUSH SCH ×2 (11:18→21:52)
[2018-04-01] MEDS ORDERED: Chlorhexidine Gluconate 2% 1 Pack (2 Cloths) TOPICAL ONE (13:00)
[2018-04-01] MEDS ORDERED: Sodium Chlor 0.9% Inj 500 ML IV.CONT ONE (13:00)
[2018-04-01] MEDS ORDERED: Metoprolol Tartrate 25 MG Tablet PO ONE (13:00)
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
[2018-04-01] MEDS ORDERED: fentaNYL Citrate Inj 250 MCG/5 ML Ampul ONE (16:01)
[2018-04-01] MEDS ORDERED: ceFAZolin 2 GM Premix Inj 2 GM/50 ML PIGGYBACK IV.SIG ONE (16:55)
--- NOTE | 2018-04-01 17:32 | P.BOP ---
Date of procedure: 04/01/18 Procedure: right knee I&D, vac change Surgeon: Oneida Saenz MD Estimated blood loss (mL): 10 Tourniquet time (min): 0 Pathology: none sent Condition: stable Disposition: PACU
[2018-04-01] MEDS ORDERED: *morphine SULFATE 10 MG/ML PERIprocedure ONLY ONE (17:58)
[2018-04-02 04:52] LABS: Baso % (Auto) 0.1 % (0.0-2.0); Hematocrit 30.4 % (35.0-46.0); Hemoglobin 9.4 gm/dL (11.6-15.3); Lymph # (Auto) 0.9 th/mm3 (1.0-4.8); Lymph % (Auto) 5.2 % (9.0-44.0); Mean Corpuscular Hemoglobin 22.6 pg (27.0-34.0); Mean Platelet Volume 7.1 fL (7.0-11.0); Mono # (Auto) 0.2 th/mm3 (0.0-0.9); Mono % (Auto) 1.3 % (0.0-8.0); Neut # (Auto) 15.7 th/mm3 (1.8-7.7); Neut % (Auto) 93.4 % (16.0-70.0); Platelet Count 543 th/mm3 (150-450); Red Blood Count 4.16 mil/mm3 (4.00-5.30); Red Cell Distribution Width 15.4 % (11.6-17.2); White Blood Count 16.8 th/mm3 (4.0-11.0)
[2018-04-02 05:06] LABS: Mean Corpuscular HGB Conc 30.9 % (32.0-36.0)
[2018-04-02] MEDS: Docusate Sodium 100 MG Capsule PO SCH ×2 (08:00→22:06)
[2018-04-02] MEDS: Enoxaparin Inj 40 MG/0.4 ML Syringe SQ SCH (08:00)
[2018-04-02] MEDS: Gabapentin 400 MG Capsule PO SCH ×3 (08:01→17:27)
[2018-04-02] MEDS: Sodium Chloride 0.9% 2 ML Flush BID IV.FLUSH SCH ×2 (08:30→22:07)
[2018-04-02] MEDS: Pantoprazole Inj 40 MG Vial IV.PUSH SCH (09:00)
--- NOTE | 2018-04-02 13:00 | P.PNOP ---
Subjective Interval history: Emi is doing well at bedside this morning. She notes her wrist pain is minimal. She denies other complaints. Physical Exam Vital signs: Vital Signs 04/01/18 17:38 04/01/18 17:45 04/01/18 18:00 Temperature 99.1 F Pulse Rate 116 H 112 H 115 H Respiratory Rate 14 20 18 Blood Pressure 134/76 131/76 121/69 Pulse Oximetry 95 100 100 04/01/18 18:14 04/01/18 18:15 04/01/18 18:30 Temperature 98.5 F Pulse Rate 98 H 102 H Respiratory Rate 16 20 20 Blood Pressure 122/70 126/73 Pulse Oximetry 100 99 04/01/18 21:15 04/01/18 21:42 04/01/18 22:20 Temperature 97.9 F Pulse Rate 113 H 113 H Respiratory Rate 17 17 18 Blood Pressure 130/71 Pulse Oximetry 95 04/01/18 23:40 04/02/18 04:05 04/02/18 04:40 Temperature 98.1 F 97.8 F Pulse Rate 99 H 71 97 H Respiratory Rate 16 15 16 Blood Pressure 118/67 126/72 Pulse Oximetry 94 L 94 L 04/02/18 04:44 04/02/18 08:00 04/02/18 09:40 Temperature 97.5 F L Pulse Rate 88 87 Respiratory Rate 18 16 16 Blood Pressure 108/66 Pulse Oximetry 95 96 04/02/18 12:00 Temperature 98.0 F Pulse Rate 105 H Respiratory Rate 16 Blood Pressure 125/70 Pulse Oximetry 98 Intake & Output 04/01/18 04/02/18 04/02/18 18:59 06:59 18:59 Intake Total 1210 / 1210 360 / 360 Output Total Balance 1199 / 1199 360 / 360 Weight 104.6 kg Intake: IV 50 / 50 Ancef 2 GM Premix Inj 2 gm In 50 / 50 50 ml @ 0 mls/hr IV.SIG .STK- MED ONE Rx#:[id number] Oral 360 / 360 360 / 360 Anesthesia Amount 800 / 800 Output: Stool Estimated Blood Loss Other: Mode Setting Right Leg Continuous Continuous Continuous # Voids 2 1 Date of Last Bowel Movement 03/31/18 04/01/18 04/01/18 - Constitutional no acute distress - Routine Extremities Exam Comments: Focused evaluation of the right hand and wrist demonstrates a well-healed volar wrist incision. Sutures are removed. Sensation is intact in median, radial, ulnar nerve distribution. She has full hand range of motion. Wrist supination 40 pronation 60. Flexion 15, extension 15. Results - Labs CBC & Chem 7: 04/02/18 03:53 03/31/18 03:59 Laboratory Results - last 24 hr 04/02/18 03:53 WBC 16.8 H RBC 4.16 Hgb 9.4 L Hct 30.4 L MCV 73.0 L MCH 22.6 L MCHC 30.9 L RDW 15.4 Plt Count 543 H MPV 7.1 Neut % (Auto) 93.4 H Lymph % (Auto) 5.2 L [place] % (Auto) 1.3 Eos % (Auto) 0.0 Baso % (Auto) 0.1 Neut # (Auto) 15.7 H Lymph # (Auto) 0.9 L [place] # (Auto) 0.2 Eos # (Auto) 0.0 Baso # (Auto) 0.0 WBC Differential . Differential Comment Auto diff final Microbiology 03/30/18 12:30 Blood - Other Aerobic Blood Culture - Preliminary No growth in 3 days 03/30/18 12:30 Blood - Other Anaerobic Blood Culture - Preliminary No growth in 3 days 03/30/18 12:25 Blood - Other Aerobic Blood Culture - Preliminary No growth in 3 days 03/30/18 12:25 Blood - Other Anaerobic Blood Culture - Preliminary No growth in 3 days - Procedures 03/25/18 s/p right knee repeat I&D with patellar tendon repair (Dr Oneida Saenz ) 03/23/18 repeat right knee I&D with VAC placement (Dr Oneida Saenz) 03/21/18 s/p right knee I&D and I&D (Dr Oneida Saenz) 03/22/18 Right distal radius open reduction internal fixation of intra- articular fracture, greater than 3 or more fragments. (Dr Latrell Lim) 03/22/18 Right brachioradialis tenotomy. (Dr Latrell Lim) Assessment and Plan - Assessment and Plan Emi is doing well, now 12 days out from right distal radius open reduction internal fixation. We will obtain repeat x-rays of the right wrist today. Plan of care as follows: 1. Strict nonweightbearing to the right upper extremity for 8 weeks duration 2. Sutures removed today. Transition to a removable splint. Maintain splint in place at all times except for wrist/hand therapy. 3. Occupational therapy consultation for gentle active wrist range of motion. No passive range of motion until 6 weeks postop. 4. Plan for outpatient follow-up in 2 weeks. If patient cannot secure a physician in [place], I'm happy to follow her up in my clinic for her right wrist.
--- NOTE | 2018-04-02 13:36 | XR ---
EXAM DATE: 04/02/2018 1:24 PM EDT AGE/SEX: 28 years / Female INDICATIONS: Fracture. CLINICAL DATA: This is the patient's subsequent encounter. Patient reports that signs and symptoms h ave been present for 2 weeks and indicates a pain score of 0/10. MEDICAL/SURGICAL HISTORY: None. None. COMPARISON: [facility] [place], WRIST RIGHT 1V, 03/21/2018. . FINDINGS: Plate and screws is seen bridging the fracture distal radius. Alignment anatomic. Ulnar styloid fract ures again noted. Carpus intact. CONCLUSION: Anatomic alignment. Electronically signed by: Toño Acosta MD 04/02/2018 1:35 PM EDT
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
[2018-04-02] MEDS: Sodium Hypochlorite 0.125% Top Soln 500 ML Bottle TOPICAL SCH ×2 (22:07)
--- NOTE | 2018-04-03 09:12 | P.PNOP ---
Subjective Interval history: Doing well. Wound vac removed on floor, plan for wet to dry dressing changes. Patient states she is being discharged tomorrow. Physical Exam Vital signs: Vital Signs 04/02/18 09:40 04/02/18 12:00 04/02/18 16:00 Temperature 98.0 F 98.0 F Pulse Rate 87 105 H 110 H Respiratory Rate 16 16 16 Blood Pressure 125/70 122/68 Pulse Oximetry 96 98 97 04/02/18 16:50 04/02/18 20:00 04/02/18 21:16 Temperature 98.1 F Pulse Rate 78 110 H 100 H Respiratory Rate 16 20 19 Blood Pressure 133/83 Pulse Oximetry 98 04/03/18 00:00 04/03/18 04:00 04/03/18 05:02 Temperature 97.5 F L 97.4 F L Pulse Rate 100 H 76 72 Respiratory Rate 20 20 12 Blood Pressure 113/68 126/71 Pulse Oximetry 99 99 Intake & Output 04/02/18 04/03/18 04/03/18 18:59 06:59 18:59 Intake Total 1360 / 1360 480 / 480 Balance 1360 / 1360 480 / 480 Intake: Oral 1360 / 1360 480 / 480 Other: Mode Setting Right Leg Continuous # Voids 3 1 Date of Last Bowel Movement 04/01/18 04/02/18 # Bowel Movements 1 Narrative: RLE with 2+DP, +EHL/FHL/PF/DF,SILT. Knee dressing c/d/i. Results - Labs CBC & Chem 7: 04/02/18 03:53 03/31/18 03:59 Microbiology 03/30/18 12:30 Blood - Other Aerobic Blood Culture - Preliminary No growth in 3 days 03/30/18 12:30 Blood - Other Anaerobic Blood Culture - Preliminary No growth in 3 days 03/30/18 12:25 Blood - Other Aerobic Blood Culture - Preliminary No growth in 3 days 03/30/18 12:25 Blood - Other Anaerobic Blood Culture - Preliminary No growth in 3 days - Imaging Impressions Wrist X-Ray 04/02/18 00:00 CONCLUSION: Anatomic alignment. - Procedures 03/21: RIGHT radius ORIF. RIGHT brachioradialis (Dr Latrell Lim) 03/21: RIGHT knee I&D with wound vac (Dr Oneida Saenz) 03/23: Repeat I&D right knee, vacuum assisted closure (Dr Oneida Saenz) 03/25: RIGHT knee repeat I&D with patellar tendon repair, partial wound closure and wound VAC (Dr Oneida Saenz) 04/01: Right knee I&D, vac change (Dr Oneida Saenz) Assessment and Plan - Assessment and Plan 28 year old female, POD 1 s/p Right knee I&D/vac change, POD 8 s/p right knee patellar tendon repair. Plan: Weightbearing as tolerated in knee immobilizer Wet to dry dressing changes to right knee as instructed by plastics OK for d/c from orthopedic standpoint OK to transition care to orthopedist in [place], or may follow up with me in 2 weeks
--- NOTE | 2018-04-03 09:23 | P.OP ---
- Preoperative Diagnosis (1) Laceration of right knee with tendon involvement - Postoperative Diagnosis (1) Laceration of right knee with tendon involvement Date of procedure: 04/01/18 Procedure: right knee repeat irrigation and debridement, vac change Anesthesia: FRED Surgeon: Oneida Saenz MD Estimated blood loss (mL): 10 Pathology: none sent Operation and Findings: Patient was brought back to the operating room and placed supine on the operating table. General anesthesia was then administered. The wound vac was removed and the wound preliminarily inspected. It appeared clean. It was then prepped and draped in the usual sterile fashion. We began with gentle irrigation of the wound with 3L of antibiotic solution. Wound edges showed healthy granulation tissue present. Anterior knee incision inspected and there was a slightly dusky skin edge approximately 1 cm which was excised and reclosed with alaina. The wound was then irrigated with an additional 3L of sterile saline. A wound vac sponge was then placed in the anteromedial knee defect, about 9 x 5 cm in size and secured. Vac was tested and had good seal. The knee was then wrapped in an bernarda and she was placed back into the knee immobilizer and taken to the recovery room in good condition.
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
[2018-04-03] MEDS: Docusate Sodium 100 MG Capsule PO SCH (09:45)
[2018-04-03] MEDS: Pantoprazole Inj 40 MG Vial IV.PUSH SCH (09:47)
[2018-04-03] MEDS: Enoxaparin Inj 40 MG/0.4 ML Syringe SQ SCH (09:47)
[2018-04-03] MEDS: Gabapentin 400 MG Capsule PO SCH ×2 (09:48→13:16)
[2018-04-03] MEDS: Sodium Chloride 0.9% 2 ML Flush BID IV.FLUSH SCH (10:14)
[2018-04-03] MEDS: Sodium Hypochlorite 0.125% Top Soln 500 ML Bottle TOPICAL SCH (10:16)
== END 2018-04-03 13:56 | disposition home or self-care (01) ==
LOC: NEPI 02:16 → NEDA 03:48 → EDBD 03:48 → N06 05:09
PROVIDERS: ADMIT Surgery; ATTEND Surgery